=== PATIENT | female | born 1945 | race Caucasian/White ===

== ENCOUNTER 2024-10-11 16:03 | Inpatient (IN) | payer OTHER ==
[~2024-10-11] VITALS: Ht 152.4 cm; Wt 61.4 kg
[2024-10-11] MEDS ORDERED: TELM1TAB86 PO (16:11)
[2024-10-11 16:49] LABS: PLATELET COUNT (AUTO) 395 K/uL (150-450); RED BLOOD CELL COUNT(AUTO) 3.66 MIL/uL (4.00-5.20); RED CELL DISTRIBUTION WIDTH 12.3 % (11.5-14.5); WHITE BLOOD COUNT (AUTO) 7.0 K/uL (4.5-11.0)
[2024-10-11 16:55] LABS: CALCIUM, TOTAL 8.5 mg/dL (8.8-10.5); CREATININE 0.98 mg/dL (0.60-1.30); GLOMERULAR FILTR. RATE CALC 55 mL/min (>60); GLUCOSE,RANDOM 102 mg/dL (70-110); SODIUM SERUM 139 mmol/L (136-145); UREA NITROGEN, BLOOD 20 mg/dL (7-18)
[2024-10-11 17:01] LABS: ASPARTATE AMINOTRANSFERASE 18.0 U/L (15-37); TOTAL PROTEIN, SERUM 7.0 g/dL (6.4-8.2)
[2024-10-11 17:06] LABS: TROPONIN I-HIGH SENSITIVITY 6 ng/L (<51)
[2024-10-11 17:10] LABS: APPEARANCE,URINE CLEAR (CLEAR); GLUCOSE, URINE (UA) NEGATIVE (NEGATIVE); LEUKOCYTE ESTERASE ,URINE SMALL (NEGATIVE); NITRATE,URINE NEGATIVE (NEGATIVE); OCCULT BLOOD,URINE NEGATIVE (NEGATIVE); SPECIFIC GRAVITIY, URINE 1.019 (1.003-1.030)
[2024-10-11] MEDS ORDERED: 0.9% SODIUM CHLORIDE 10 ML SYRINGE IVP ONE (17:32)
[2024-10-11] MEDS ORDERED: SODIUM CHLORIDE 0.9% 100 ML ONE (17:32)
[2024-10-11] MEDS ORDERED: IOHEXOL 350 MG/ML 100 ML VIAL ONE (17:32)
[2024-10-11 17:34] LABS: SQUAMOUS EPITHELIAL CELL,UR Few /LPF (None Seen)
[2024-10-11] MEDS: ONDANSETRON HCL 4 MG/2 ML VIAL IVP ONE (17:39)
[2024-10-11] MEDS: MAG HYDROX/ALUMINUM HYD/SIMETH 30 ML SUSPENSION UDCUP PO ONE (17:39)
[2024-10-11] MEDS: FAMOTIDINE 20 MG/2 ML VIAL IVP ONE (17:39)
[2024-10-11] MEDS: MORPHINE SULFATE 2 MG/ML SYRINGE IVP ONE (17:40)
[2024-10-11] MEDS: ACETAMINOPHEN 500 MG TABLET PO ONE (21:28)
[2024-10-11] MEDS ORDERED: POTASSIUM CHLORIDE 20 MEQ in DEXTROSE 5%-LACTATED RINGERS 1,000 ML IV ONE (22:45)
[2024-10-11] MEDS ORDERED: ONDANSETRON HCL 4 MG/2 ML VIAL IVP PRN (22:45)
[2024-10-11] MEDS ORDERED: MORPHINE SULFATE 2 MG/ML SYRINGE IVP PRN (22:45)
[2024-10-11] MEDS ORDERED: ACETAMINOPHEN 325 MG TABLET PO PRN (22:45)
[2024-10-11] MEDS: POTASSIUM CHLORIDE 20 MEQ in DEXTROSE 5%-LACTATED RINGERS 1,000 ML IV ONE (22:58)
[2024-10-11] MEDS: HEPARIN SODIUM,PORCINE 5,000 UNITS/ML VIAL SQ SCH (23:55)
[2024-10-12 00:45] VITALS: BP 140/60; PULSE 61; RESP 20; TEMP 97.5; O2SAT 95
[2024-10-12 04:00] VITALS: BP 136/68; PULSE 76; RESP 18; TEMP 97.7; O2SAT 95
[2024-10-12 06:23] LABS: PLATELET COUNT (AUTO) 355 K/uL (150-450); RED BLOOD CELL COUNT(AUTO) 3.57 MIL/uL (4.00-5.20); RED CELL DISTRIBUTION WIDTH 12.8 % (11.5-14.5); WHITE BLOOD COUNT (AUTO) 5.6 K/uL (4.5-11.0)
[2024-10-12 06:35] LABS: SODIUM SERUM 140 mmol/L (136-145)
[2024-10-12 06:56] LABS: CALCIUM, TOTAL 8.3 mg/dL (8.8-10.5); CREATININE 0.87 mg/dL (0.60-1.30); GLOMERULAR FILTR. RATE CALC > 60 mL/min (>60); GLUCOSE,RANDOM 104 mg/dL (70-110); UREA NITROGEN, BLOOD 16 mg/dL (7-18)
[2024-10-12 08:24] VITALS: BP 129/55; PULSE 63; RESP 18; TEMP 97.3; O2SAT 98
[2024-10-12] MEDS: DOCUSATE SODIUM 100 MG CAPSULE PO SCH (08:32)
[2024-10-12] MEDS: SUCRALFATE 1 GM/10 ML SUSPENSION UDCUP PO SCH (17:10)
[2024-10-12] MEDS: PANTOPRAZOLE SODIUM 40 MG/VIAL IVP SCH (17:10)
[2024-10-12 19:23] VITALS: BP 145/59; PULSE 61; RESP 18; TEMP 97.9; O2SAT 95
[2024-10-13 03:49] VITALS: BP 141/58; PULSE 60; RESP 18; TEMP 98.1; O2SAT 96
[2024-10-13 08:33] VITALS: BP 132/56; PULSE 61; RESP 18; TEMP 97.7; O2SAT 95
[2024-10-13] MEDS ORDERED: DOCU-385 PO (09:06)
[2024-10-13] MEDS ORDERED: PANT-31 PO (09:06)
[2024-10-13] MEDS: BISACODYL 10 MG RECTAL RECTAL SUPPOSITORY PR ONE (10:23)
[2024-10-13] MEDS: SENNOSIDES 8.8 MG/5 ML SYRUP UDCUP PO ONE (10:23)
[2024-10-13] MEDS: POLYETHYLENE GLYCOL 3350 17 GM PACKET PO ONE (10:23)
== END 2024-10-13 15:15 | disposition home or self-care (01) | DRG 392 ==
LOC: EMS 16:03 → EDH 22:35 → 6S 10-12 00:45
PROVIDERS: ADMIT Internal Medicine; ATTEND Internal Medicine
DX: K29.70 Gastritis, unspecified, without bleeding (principal); I10 Essential (primary) hypertension
CPT/HCPCS: 74177; 76705; 80048; 80076; 81001; 83690; 83735; 84484; 85025; 93005; 96365; 96375; 99285; G0378; J1644; J2270; J2405; J2470; J3480; J3490; J7050